=== PATIENT | male | born 1960 | race Caucasian/White ===

== ENCOUNTER 2021-01-05 15:10 | Emergency (ER) | payer BC ==
--- NOTE | 2021-01-05 15:51 | EDM.PDOC ---
ED HPI GENERAL MEDICAL PROBLEM - General Chief Complaint: General Stated Complaint: JAUNDICE Time Seen by Provider: 01/05/21 15:25 Source of Information: Reports: Patient, Significant Other History Limitations: Reports: No Limitations - History of Present Illness INITIAL COMMENTS - FREE TEXT/NARRATIVE: Patient presents with symptoms that started 6 days ago. Wednesday he felt achy in his joints "like influenza", sweating alternating with chills, and cough. Wednesday he felt better. Wednesday he noticed his urine was feng colored which has continued. He has also had mild nausea consistently for the last few days. Wednesday he called his provider and came for labs which showed bilirubinuria and elevated liver function which he has never had before. Today (Wednesday) his noticed a little jaundice in his eyes. A few weeks ago he had an infection in right knee pre-patellar bursa and was on Bactrim for 3-4 weeks. He had started with Cipro, then Bactrim, then bursectom y, then Bactrim x 2 courses along with some Vanco. Last dose of Bactrim was morning then stopped by his PCP. DARREN Alva and Dr. Ospina are concerned about possible hepatic injury from the Bactrim. Lower Abdominal Pain Score (Numeric/FACES): 2 - Related Data Allergies Allergy/AdvReac Type Severity Reaction Status Date / Time No Known Drug Allergies Allergy Other Verified 01/05/21 15:47 Home Meds: Home Meds . [No Known Home Meds] 11/30/20 [History] ED ROS GENERAL - Review of Systems Review Of Systems: See Below Constitutional: Reports: Chills (gone now), Decreased Appetite. Denies: Fever HEENT: Reports: No Symptoms Respiratory: Denies: Shortness of Breath, Cough Cardiovascular: Denies: Chest Pain, Lightheadedness, Syncope GI/Abdominal: Reports: Abdominal Pain (mild vague pain in low abomen along with mild persistent nausea and decreased appetite), Decreased Appetite, Nausea. Denies: Constipation, Diarrhea (stool looked pale last couple days), Vomiting : Denies: Dysuria, Flank Pain Musculoskeletal: Reports: No Symptoms Skin: Reports: Jaundice. Denies: Cyanosis, Mottled, Pallor, Diaphoresis Neurological: Denies: Confusion, Dizziness, Headache, Seizure, Syncope, Trouble Speaking, Difficulty Walking Psychiatric: Denies: Agitation, Anxiety, Confusion Hematologic/Lymphatic: Denies: Anemia, Easy Bleeding ED EXAM, GENERAL - Physical Exam Exam: See Below Exam Limited By: No Limitations General Appearance: Alert, WD/WN, No Apparent Distress Eye Exam: Bilateral Eye: EOMI, PERRL, Other (mild jaundice) Ears: Normal External Exam, Hearing Grossly Normal Nose: Normal Inspection, No Blood Throat/Mouth: Normal Inspection, Normal Lips, Normal Voice, No Airway Compromise Head: Atraumatic, Normocephalic Neck: Normal Inspection, Full Range of Motion Respiratory/Chest: No Respiratory Distress, Lungs Clear, Normal Breath Sounds, No Accessory Muscle Use, Chest Non-Tender Cardiovascular: Regular Rate, Rhythm, No Murmur GI/Abdominal: Normal Bowel Sounds, Soft, Non-Tender (low abdominal pain is not worse with palpation), No Organomegaly, No Distention, No Abnormal Bruit Back Exam: Normal Inspection, Full Range of Motion. No: CVA Tenderness (L), CVA Tenderness (R) Extremities: Normal Inspection, Normal Range of Motion Neurological: Alert, Oriented, Normal Cognition, No Motor/Sensory Deficits Psychiatric: Normal Affect, Normal Mood Skin Exam: Warm, Dry, Intact, Normal Color, No Rash Course - Vital Signs Last Recorded V/S: Last Vital Signs Temp 98.2 F 01/05/21 15:12 Pulse 85 01/05/21 15:12 Resp 16 01/05/21 15:12 BP 137/83 01/05/21 15:12 Pulse Ox 97 01/05/21 15:12 - Orders/Labs/Meds Orders: Active Orders 24 hr Category Date Time Status HEPATITIS PANEL (4) [REF] Stat Lab 01/05/21 18:56 Ordered Labs: Laboratory Tests 01/05/21 01/05/21 01/05/21 Range/Units 15:42 15:42 15:42 WBC 5.78 (5.00-10.00) 10^3/uL RBC 4.40 L (4.50-6.00) 10^6/uL Hgb 13.1 D (13.0-17.0) g/dL Hct 38.4 L (40.0-52.0) % MCV 87.3 (82.0-92.0) fL MCH 29.8 (27.0-31.0) pg MCHC 34.1 (32.0-36.0) g/dL RDW 12.4 (11.5-14.5) % Plt Count 271 (150-400) 10^3/uL MPV 9.3 (7.4-10.4) fL Immature Gran % (Auto) 0.3 (0.0-5.0) % Neut % (Auto) 68.7 (50.0-70.0) % Lymph % (Auto) 14.5 L (20.0-40.0) % [place] % (Auto) 15.1 H (2.0-8.0) % Eos % (Auto) 0.0 L (1.0-3.0) % Baso % (Auto) 1.4 H (0.0-1.0) % Neut # (Auto) 3.97 (2.50-7.00) 10^3/uL Lymph # (Auto) 0.84 L (1.00-4.00) 10^3/uL [place] # (Auto) 0.87 H (0.10-0.80) 10^3/uL Eos # (Auto) 0.00 L (0.10-0.30) 10^3/uL Baso # (Auto) 0.08 (0.00-0.10) 10^3/uL Immature Gran # (Auto) 0.02 (0.00-0.50) 10^3/uL Sodium 140 (136-145) mmol/L Potassium 4.2 (3.5-5.1) mmol/L Chloride 103 (98-107) mmol/L Carbon Dioxide 24.2 (21.0-32.0) mmol/L Anion Gap 17.0 H (5-15) mmol/L BUN 16 (7-18) mg/dL Creatinine 1.17 (0.51-1.17) mg/dL Est Cr Clr Drug Dosing 79.24 mL/min Estimated GFR (MDRD) > 60 mL/min Glucose 106 (70-140) mg/dL Calcium 8.3 L (8.7-10.3) mg/dL Total Bilirubin 5.2 H (0.2-1.0) mg/dL AST 238 H (15-37) U/L ALT 590 H (14-63) U/L Alkaline Phosphatase 413 H (46-116) U/L Troponin I High Sens < 4.000 (0-76.000) pg/mL C-Reactive Protein 2.4 H (0.0-0.9) mg/dL Total Protein 6.6 (6.4-8.2) g/dL Albumin 3.25 L (3.40-5.00) g/dL Specimen Type Urincc Urine Color Feng H (YELLOW) Urine Appearance Clear (CLEAR) Urine pH 5.5 (5.0-9.0) Ur Specific [place] 1.025 (1.005-1.030) Urine Protein 30 H (NEGATIVE) mg/dL Urine Glucose (UA) Negative (NEGATIVE) mg/dL Urine Ketones Negative (NEGATIVE) mg/dL Urine Occult Blood Negative (NEGATIVE) Urine Nitrite Negative (NEGATIVE) Urine Bilirubin Large H (NEGATIVE) Urine Urobilinogen 1.0 (0.2-1.0) E.U./dL Ur Leukocyte Esterase Negative (NEGATIVE) Urine RBC 5-10 H (0-5) /HPF Urine WBC 0-5 (0-5) /HPF Ur Epithelial Cells Rare /LPF Urine Bacteria Rare (NONE TO FEW) /HPF Meds: Medications Discontinued Medications Generic Name Dose Route Start Last Admin Trade Name Freq PRN Reason Stop Dose Admin Sodium Chloride 1,000 mls @ 999 mls/hr 01/05/21 17:00 01/05/21 17:55 Normal Saline IV 01/05/21 18:00 999 mls/hr .BOLUS ONE Administration - Re-Assessments/Exams Free Text/Narrative Re-Assessment/Exam: 01/05/21 17:03 Liver function is increased from Wednesday. I discussed case with Dr. Cole, GI at [facility] who recommended one liter of NS IV, hepatitis panel, Abd/pelvis CT with contrast to ruleout obstruction and if clear to follow liver function every two days outpatient. She advised recheck (in [place]) if symptomatic worsening. She also informed me that it may take several days or weeks for the levels to start coming back down but she is available for questions if needed during monitoring. 01/05/21 19:25 Patient feeling okay but still very mild nausea. Jaundice in eyes appears improved following the IV fluids. I discussed findings and treatment plan with him and his . They will follow up in clinic in two days for recheck of liver function and to get the hepatitis panel results. I discussed updates and plan with DARREN Alva who will be following him outpatient. Patient discharged to home in stable condition. Departure - Departure Time of Disposition: 19:21 Disposition: Home, Self-Care 01 Condition: Good Clinical Impression: Jaundice, Elevated liver function tests - Discharge Information Instructions: Jaundice, Adult, [id number] Referrals: Chacha Fraser PA-C [Primary Care Provider] - Forms: ED Department Discharge Additional Instructions: Drink at least 8 cups of water daily. Avoid Tylenol (acetaminophen), alcohol, high-fat foods to try to avoid any additional injury to your liver. Follow up with Chacha or Dr. Ospina on Wednesday for recheck of liver function and results on the hepatitis panel. If symptoms worsen, Dr. Cole advised coming directly to [place] [facility] ([facility]) for evaluation, if possible. Sepsis Event Note (ED) - Evaluation Sepsis Screening Result: No Definite Risk - Focused Exam Vital Signs: Vital Signs Temp Pulse Resp BP Pulse Ox 01/05/21 15:12 98.2 F 85 16 137/83 97 - My Orders Last 24 Hours: My Active Orders 01/05/21 18:56 HEPATITIS PANEL (4) [REF] Stat - Assessment/Plan Last 24 Hours: My Active Orders 01/05/21 18:56 HEPATITIS PANEL (4) [REF] Stat
[2021-01-05 16:17] LABS: CHLORIDE,CL 103 mmol/L (98-107); SODIUM,NA 140 mmol/L (136-145)
[2021-01-05] MEDS ORDERED: Sodium Chloride 0.9% 1,000 ML IV ONE (17:00)
[2021-01-05] MEDS ORDERED: Iopamidol 755 Mg/ML 75 ML Bottle IVPUSH ONE (17:25)
[2021-01-05] MEDS ORDERED: Sodium Chloride 0.9% 50 ML IV SCH (17:25)
--- NOTE | 2021-01-05 18:20 | CT ---
[id number] CT/CT Abdomen Pelvis W IV EXAM: CT Abdomen Pelvis W IV CLINICAL DATA: ELEVATED LIVER FUNCTION, JAUNDICE. COMPARISON STUDY: None. FINDINGS: Lung bases are clear. Splenomegaly. Spleen measures 17 cm in AP dimension. No focal splenic lesion or evidence of infarction. Liver demonstrates normal parenchymal density and enhancement. No focal lesion. No biliary ductal dilation. Portal vein is normal in caliber and patent. Gallbladder is decompressed but otherwise unremarkable. Common bile duct is normal in caliber. No evidence of pancreas mass. Sinus and cortical cysts in the kidneys. Kidneys are otherwise unremarkable. No bowel obstruction or inflammation. Appendix is normal. No lymphadenopathy, free fluid, or pneumoperitoneum. Circumferential urinary bladder wall thickening, nonspecific. Correlate for bladder outlet obstruction versus cystitis. Prostate gland enlargement. Spondylosis. No acute fracture or compression deformity. IMPRESSION: Normal radiographic appearance of the liver, gallbladder, and biliary ductal system. No pancreas mass. Etiology of LFTs/jaundice is not radiographically evident. Spleen is mildly enlarged without evidence of focal lesion or infarction. This is of uncertain etiology or clinical significance. Stevo Lange MD 01/05/21 [id number] Thank you for allowing us to participate in the care of your patient.
== END 2021-01-05 19:32 | disposition home or self-care (01) ==
LOC: KA.ED 15:10
DX: R17 Unspecified jaundice (principal); R79.89 Other specified abnormal findings of blood chemistry
CPT/HCPCS: 36415; 74177; 80053; 80074; 81001; 84484; 85025; 86140; 99283; 99285-25; J7030; Q9967

== ENCOUNTER 2025-02-06 10:57 | Day surgery (SDC) | payer MEDICARE, BC ==
[2025-02-06] MEDS: Sodium Chloride 0.9% 10 ML Syringe FLUSH PRN (11:15)
[2025-02-06] MEDS: Lactated Ringers 1,000 ML IV SCH (11:15)
[2025-02-06] MEDS ORDERED: Midazolam 1 MG/ML 2 ML SDV ONE (11:40)
[2025-02-06] MEDS ORDERED: Propofol 200 MG/20 ML SDV ONE (11:41)
== END 2025-02-06 13:39 | disposition home or self-care (01) ==
LOC: KA.SDS 10:57
PROVIDERS: ATTEND Surgery
DX: Z12.11 Encounter for screening for malignant neoplasm of colon (principal)
CPT/HCPCS: 00812; J2250; J2704; J7120